=== PATIENT | female | born 1980 | race Caucasian/White ===

== ENCOUNTER → 2019-02-24 | Outpatient (CLI) | payer BC ==
[~2019-02-24] MED LIST: LIDOCAINE HCL 1% LOCAL INJ 20 ML VIAL ONE; MIDAZOLAM HCL 2 MG/2 ML VIAL ONE
--- NOTE | 2019-02-24 13:43 | Diagnostic Imaging Report ---
PROCEDURE: Ultrasound-guided thyroid biopsy Procedural Personnel Attending physician(s): Dontrell Liz MD Fellow physician(s): None Resident physician(s): None Advanced practice provider(s): None Pre-procedure diagnosis: Left thyroid nodule Post-procedure diagnosis: Same Indication: Histopathologic diagnosis Previous biopsy of same target (QCDR): No Additional clinical history: None Complications: No immediate complications. IMPRESSION: Ultrasound-guided biopsy of left thyroid nodule . Plan: Specimen(s) sent for evaluation. PROCEDURE SUMMARY: - Percutaneous US-guided left thyroid nodule biopsy - Additional procedure(s): None PROCEDURE DETAILS: Pre-procedure Reference imaging for biopsy target: Outside CT Consent: Informed consent for the procedure including risks, benefits and alternatives was obtained and time-out was performed prior to the procedure. Preparation: The site was prepared and draped using maximal sterile barrier technique including cutaneous antisepsis. Anesthesia/sedation Level of anesthesia/sedation: No sedation Anesthesia/sedation administered by: Independent trained observer under attending supervision with continuous monitoring of the patient?s level of consciousness and physiologic status Imaging prior to biopsy The patient was positioned supine. Initial ultrasound was performed. Biopsy target: - Maximal diameter (cm): 2.4 - Location: Left thyroid lobe Other findings: None Biopsy Local anesthesia was administered. Under US guidance, the biopsy needle was advanced to the target and biopsy was performed. Fine needle aspiration device: 22g Chiba Fine needle size: 22g x 9cm Number of FNA specimens: 4 On-site biopsy touch preparation: Yes Additional sampling recommendations: None Preliminary assessment of sample adequacy: Adequate Needle removal The biopsy needle was removed and a sterile dressing was applied. Tract embolization: None Imaging following biopsy Immediate post-biopsy ultrasound was performed. Post-biopsy imaging findings: No hematoma Additional Details Additional description of procedure: None Equipment details: None Specimens removed: Biopsy samples as detailed above Estimated blood loss (mL): Less than 10 Standardized report: [id number] Attestation Signer name: Dontrell Liz MD I attest that I was present for the entire procedure. I reviewed the stored images and agree with the report as written. Signed by: Dontrell Liz MD on 02/24/2019 1:40 PM
== END ==
LOC: US 11:14
PROVIDERS: ATTEND Otolaryngology
DX: E04.1 Nontoxic single thyroid nodule (principal)
CPT/HCPCS: 10005; 88172; 88173; J2001; 88305; J2250

== ENCOUNTER 2021-06-13 10:09 | Observation (INO) | payer BC, OTHER ==
[~2021-06-13] VITALS: Ht 160 cm; Wt 77.1 kg
[~2021-06-13 10:09] MED LIST changes: +ADDERALL 10 MG10 MG PO; -LIDOCAINE HCL 1% LOCAL INJ 20 ML VIAL ONE; +LUNESTA1 MG PO; -MIDAZOLAM HCL 2 MG/2 ML VIAL ONE
[2021-06-13] MEDS ORDERED: LIDOCAINE 1% W/EPINEPHRINE 20 ML VIAL ONE (11:53)
[2021-06-13] MEDS ORDERED: FENTANYL CITRATE/PF 100MCG/2 ML INJ ONE ×2 (11:59→15:03)
[2021-06-13] MEDS ORDERED: MIDAZOLAM HCL 2 MG/2 ML VIAL ONE (11:59)
[2021-06-13] MEDS ORDERED: ONDANSETRON HCL INJ 2MG/ML 2ML 2 MG/ML VIAL ONE ×2 (15:12→19:29)
[2021-06-13] MEDS ORDERED: Morphine 2mg Syringe 2 MG/ML SYR ONE (15:37)
[2021-06-13 16:18] VITALS: BP 122/88
[2021-06-13 16:35] VITALS: BP 122/88
[2021-06-13] MEDS ORDERED: ONDANSETRON HCL INJ 2MG/ML 2ML 2 MG/ML VIAL IV PRN (17:00)
[2021-06-13] MEDS ORDERED: HYDROCODONE/APAP 5MG-325MG TAB PO PRN ×2 (17:00)
[2021-06-13] MEDS: Cefazolin 1 GM in SODIUM CHLORIDE 0.9% 50ML 50 ML IV SCH (17:57)
[2021-06-13] MEDS: D5.45%NS/KCL 20MEQ 1,000 ML IV SCH (17:58)
[2021-06-13] MEDS ORDERED: LIDOCAINE HCL 2% LOCAL INJ 5 ML SDV VIAL INJ ONE (19:29)
[2021-06-13] MEDS ORDERED: POVIDONE IODINE 0.05% 0.05 % ML PO ONE (19:29)
[2021-06-13] MEDS ORDERED: SEVOFLURANE INHAL SOLN 250 ML PEN BTL ONE (19:29)
[2021-06-13] MEDS ORDERED: SUCCINYLCHOLINE CHLORIDE 20 MG/ML 10ML VIAL ONE (19:29)
[2021-06-13] MEDS ORDERED: FAMOTIDINE 20 MG/2 ML VIAL IV ONE (19:29)
[2021-06-13] MEDS ORDERED: PROPOFOL IV EMULSION 10 MG/ML 20 ML VIAL ONE (19:29)
[2021-06-13] MEDS ORDERED: DEXAMETHASONE SOD PHOS INJ 4 MG/ML SDV ONE (19:29)
[2021-06-13 20:00] VITALS: BP 119/77
[2021-06-13 20:50] VITALS: BP 119/77
[2021-06-13] MEDS ORDERED: IBUPROFEN 400 MG TAB PO PRN (21:15)
[2021-06-14] VITALS: BP 118/80
[2021-06-14] MEDS: Cefazolin 1 GM in SODIUM CHLORIDE 0.9% 50ML 50 ML IV SCH (01:30)
[2021-06-14] MEDS: D5.45%NS/KCL 20MEQ 1,000 ML IV SCH (02:51)
[2021-06-14 08:18] VITALS: BP 118/78
[2021-06-14] MEDS ORDERED: ACETAMINOPHEN 325 MG TAB PO ONE (08:30)
[2021-06-14 09:46] VITALS: BP 118/78
== END 2021-06-14 10:36 | disposition home or self-care (01) ==
LOC: OR 10:09 → PACU V 15:31 → MED/SURG 15:50
PROVIDERS: ADMIT Otolaryngology; ATTEND Otolaryngology
DX: D34 Benign neoplasm of thyroid gland (principal); G47.00 Insomnia, unspecified; F98.8 Other specified behavioral and emotional disorders with onset usually occurring in childhood and adolescence; Z87.891 Personal history of nicotine dependence; Z01.812 Encounter for preprocedural laboratory examination; Z20.822 Contact with and (suspected) exposure to COVID-19; K21.9 Gastro-esophageal reflux disease without esophagitis; Z68.30 Body mass index [BMI] 30.0-30.9, adult
CPT/HCPCS: 60220; 81025; 88307; 88331; G0378 ×2; J0330; J0690 ×2; J1100; J2001; J2270; J2405; J2704; J3010; U0002; 88305; J2250

== ENCOUNTER → 2022-02-08 | Outpatient (CLI) | payer BC | LOC: MAMMO 12:50 | PROVIDERS: ATTEND Obstetrics & Gynecology | DX: Z12.31 Encounter for screening mammogram for malignant neoplasm of breast (principal) | CPT/HCPCS: 77067 ==

== ENCOUNTER → 2022-03-21 | Outpatient (CLI) | payer SELFPAY | LOC: MAMMO 13:49 | PROVIDERS: ATTEND Obstetrics & Gynecology | DX: N63.20 Unspecified lump in the left breast, unspecified quadrant (principal) ==

== ENCOUNTER 2022-09-06 18:10 | Emergency (ER) | payer OTHER ==
[~2022-09-06] VITALS: Ht 160 cm; Wt 77.1 kg
[2022-09-06] MEDS ORDERED: ONDANSETRON HCL INJ 2MG/ML 2ML 2 MG/ML VIAL IV STA (18:18)
[2022-09-06] MEDS ORDERED: Morphine 4mg INJECTION 4 MG/ML INJ IV ONE (18:30)
[2022-09-06 18:34] LABS: BASOPHILS # (AUTO) 0.1 (0.0-0.1); BASOPHILS % 0.6 % (0.0-1.0); EOSINOPHILS # (AUTO) 0.8 (0.0-0.4); EOSINOPHILS % 7.9 % (0.0-6.0); HEMATOCRIT 40.7 % (34.2-44.1); HEMOGLOBIN 13.8 g/dL (12.0-16.0); LYMPHOCYTES # (AUTO) 2.4 (1.0-3.2); LYMPHOCYTES % 24.6 % (18.0-39.1); MEAN CORPUSCULAR HEMOGLOBIN 29.7 pg (28-32); MEAN CORPUSCULAR HGB CONC 33.9 g/dL (31-35); MEAN CORPUSCULAR VOLUME 87.7 fL (81-99); MONOCYTES # (AUTO) 0.5 (0.2-0.8); MONOCYTES % 4.7 % (4.4-11.3); NEUTROPHILS % 61.8 % (38.7-80.0); PLATELET COUNT 291 x10e3/uL (140-360); RED BLOOD COUNT 4.64 x10e6/uL (3.6-5.1); RED CELL DISTRIBUTION WIDTH 12.6 % (11.7-14.4)
[2022-09-06 18:53] LABS: ALBUMIN 3.7 g/dL (3.5-5.0); ALBUMIN/GLOBULIN RATIO 0.9 (0.8-2.0); ANION GAP 17.4 mmol/L (8-16); CALCIUM 9.4 mg/dL (8.4-10.2); CREATININE, SERUM 0.65 mg/dL (0.57-1.11); POTASSIUM 3.4 mmol/L (3.5-5.1)
[2022-09-06 18:59] LABS: CREATINE KINASE MB 0.4 ng/mL (0-5.0)
[2022-09-06] MEDS ORDERED: IOPAMIDOL 370 MG/ML 100 ML INFUS..BTL INJ ONE (19:56)
[2022-09-06] MEDS ORDERED: KETOROLAC TROMETHAMINE 30 MG/ML VIAL IV STA (21:09)
[2022-09-06] MEDS ORDERED: KETOROLAC TROMETHAMINE 30 MG/ML VIAL ONE (21:27)
[2022-09-06] MEDS ORDERED: KETOROLAC TROME10 MG PO (21:44)
[2022-09-06 22:14] VITALS: BP 133/89
== END 2022-09-06 22:15 | disposition home or self-care (01) ==
LOC: ER 18:19
DX: R06.02 Shortness of breath (principal); J90 Pleural effusion, not elsewhere classified; R10.816 Epigastric abdominal tenderness; R11.2 Nausea with vomiting, unspecified; K21.9 Gastro-esophageal reflux disease without esophagitis; F98.8 Other specified behavioral and emotional disorders with onset usually occurring in childhood and adolescence; R94.31 Abnormal electrocardiogram [ECG] [EKG]
CPT/HCPCS: 36415; 71045; 71260; 80053; 82550; 82553; 82948; 83690; 84484; 84702; 85025; 85379; 93005; 99284; C9113; J1885; J2270; J2405; Q9967

== ENCOUNTER 2022-09-08 00:13 | Observation (INO) | payer OTHER ==
[~2022-09-08] VITALS: Ht 160 cm; Wt 77.1 kg
[2022-09-08] VITALS (9 sets, daily range): BP systolic 134–155; BP diastolic 84–97
[~2022-09-08 00:13] MED LIST changes: +KETOROLAC TROME10 MG PO
[2022-09-08 00:37] LABS: BASOPHILS # (AUTO) 0.1 (0.0-0.1); BASOPHILS % 0.6 % (0.0-1.0); EOSINOPHILS # (AUTO) 0.7 (0.0-0.4); EOSINOPHILS % 6.9 % (0.0-6.0); HEMATOCRIT 39.6 % (34.2-44.1); HEMOGLOBIN 13.5 g/dL (12.0-16.0); LYMPHOCYTES # (AUTO) 1.9 (1.0-3.2); LYMPHOCYTES % 19.4 % (18.0-39.1); MEAN CORPUSCULAR HEMOGLOBIN 29.9 pg (28-32); MEAN CORPUSCULAR HGB CONC 34.1 g/dL (31-35); MEAN CORPUSCULAR VOLUME 87.6 fL (81-99); MONOCYTES # (AUTO) 0.4 (0.2-0.8); MONOCYTES % 3.8 % (4.4-11.3); NEUTROPHILS # (AUTO) 6.6 (2.1-6.9); NEUTROPHILS % 68.9 % (38.7-80.0); PLATELET COUNT 305 x10e3/uL (140-360); RED BLOOD COUNT 4.52 x10e6/uL (3.6-5.1); RED CELL DISTRIBUTION WIDTH 12.7 % (11.7-14.4)
[2022-09-08 01:01] LABS: ALANINE AMINOTRANSFERASE 143 IU/L (0-55); ALBUMIN 3.7 g/dL (3.5-5.0); ALBUMIN/GLOBULIN RATIO 1.1 (0.8-2.0); ALKALINE PHOSPHATASE 112 IU/L (40-150); ANION GAP 17.5 mmol/L (8-16); BLOOD UREA NITROGEN 7 mg/dL (7-26); BUN/CREATININE RATIO 11 (6-25); CARBON DIOXIDE 20 mmol/L (22-29); CHLORIDE 107 mmol/L (98-107); CREATINE KINASE 68 IU/L (29-168); CREATININE, SERUM 0.66 mg/dL (0.57-1.11); GLUCOSE 97 mg/dL (74-118); POTASSIUM 3.5 mmol/L (3.5-5.1); SODIUM 141 mmol/L (136-145)
[2022-09-08 01:07] LABS: CREATINE KINASE MB < 1.00 ng/mL (0-4.3)
[2022-09-08] MEDS ORDERED: KETOROLAC TROMETHAMINE 30 MG/ML VIAL IM PRN (01:45)
[2022-09-08] MEDS: SODIUM CHLORIDE 0.9% 1000ML 1,000 ML IV SCH ×3 (03:01→16:32)
[2022-09-08] MEDS: Morphine 4mg INJECTION 4 MG/ML INJ IV PRN ×2 (03:02→10:00)
[2022-09-08] MEDS: ONDANSETRON HCL INJ 2MG/ML 2ML 2 MG/ML VIAL IV PRN ×2 (03:05→09:59)
[2022-09-08 09:58] LABS: CREATINE KINASE 46 IU/L (29-168)
[2022-09-08 16:33] LABS: CREATINE KINASE MB 0.3 ng/mL (0-5.0)
[2022-09-09] VITALS: BP 108/70
[2022-09-09] MEDS: SODIUM CHLORIDE 0.9% 1000ML 1,000 ML IV SCH ×3 (04:07→17:45)
[2022-09-09 04:09] VITALS: BP 116/79
[2022-09-09 06:02] LABS: BASOPHILS # (AUTO) 0.1 (0.0-0.1); BASOPHILS % 0.7 % (0.0-1.0); EOSINOPHILS # (AUTO) 0.7 (0.0-0.4); EOSINOPHILS % 8.7 % (0.0-6.0); HEMATOCRIT 36.5 % (34.2-44.1); LYMPHOCYTES # (AUTO) 1.6 (1.0-3.2); LYMPHOCYTES % 20.1 % (18.0-39.1); MEAN CORPUSCULAR HEMOGLOBIN 29.7 pg (28-32); MEAN CORPUSCULAR HGB CONC 32.9 g/dL (31-35); MEAN CORPUSCULAR VOLUME 90.3 fL (81-99); MONOCYTES # (AUTO) 0.4 (0.2-0.8); MONOCYTES % 4.8 % (4.4-11.3); NEUTROPHILS # (AUTO) 5.3 (2.1-6.9); NEUTROPHILS % 65.2 % (38.7-80.0); PLATELET COUNT 261 x10e3/uL (140-360); RED BLOOD COUNT 4.04 x10e6/uL (3.6-5.1); RED CELL DISTRIBUTION WIDTH 12.9 % (11.7-14.4)
[2022-09-09 06:25] LABS: ALBUMIN 2.9 g/dL (3.5-5.0); ANION GAP 11.4 mmol/L (8-16); CALCIUM 8.3 mg/dL (8.4-10.2); CREATININE, SERUM 0.58 mg/dL (0.57-1.11); POTASSIUM 3.4 mmol/L (3.5-5.1)
[2022-09-09 06:39] LABS: CREATINE KINASE 32 IU/L (29-168)
[2022-09-09 08:57] VITALS: BP 138/94
[2022-09-09 09:00] VITALS: BP 138/94
[2022-09-09 12:05] VITALS: BP 155/95
[2022-09-09] MEDS ORDERED: LIDOCAINE HCL 2% LOCAL INJ 5 ML SDV VIAL INJ ONE (12:52)
[2022-09-09] MEDS ORDERED: GLYCOPYRROLATE INJ 0.2 MG/ML VIAL ONE (12:52)
[2022-09-09] MEDS ORDERED: PROPOFOL IV EMULSION 10 MG/ML 20 ML VIAL ONE (12:52)
[2022-09-09] MEDS ORDERED: POVIDONE IODINE 0.05% 0.05 % ML PO ONE (12:52)
[2022-09-09] MEDS ORDERED: MIDAZOLAM HCL 2 MG/2 ML VIAL ONE (13:15)
[2022-09-09] MEDS ORDERED: METOCLOPRAMIDE HCL 10 MG/2ML VIAL ONE (13:29)
[2022-09-09 16:46] VITALS: BP 138/93
== END 2022-09-09 20:02 | disposition home or self-care (01) ==
LOC: ER 00:20 → ERHOLD 01:45 → MED/SURG2 02:46
PROVIDERS: ADMIT Family Medicine; ATTEND Family Medicine
DX: K29.71 Gastritis, unspecified, with bleeding (principal); R07.89 Other chest pain; K20.90 Esophagitis, unspecified without bleeding; K44.9 Diaphragmatic hernia without obstruction or gangrene; F98.8 Other specified behavioral and emotional disorders with onset usually occurring in childhood and adolescence; Z79.1 Long term (current) use of non-steroidal anti-inflammatories (NSAID); Z20.822 Contact with and (suspected) exposure to COVID-19
CPT/HCPCS: 36415 ×2; 43239; 71045; 74181; 80053 ×2; 81025; 82550 ×2; 82553 ×2; 83690 ×2; 84484 ×2; 85025 ×2; 88305; 88342; 93005; 94799; 99284; C9113 ×2; G0378 ×2; J2001; J2250; J2270; J2405; J2704; J2765; J7030 ×2; U0002; 88304; 88312

== ENCOUNTER 2022-09-24 12:40 | Emergency (ER) | payer OTHER ==
[~2022-09-24] VITALS: Ht 160 cm; Wt 70.3 kg
[2022-09-24] MEDS ORDERED: DONNATAL/LIDOCAINE/MAALOX 30 ML SUSP PO ONE (13:30)
[2022-09-24 13:57] LABS: BASOPHILS # (AUTO) 0.1 (0.0-0.1); BASOPHILS % 0.8 % (0.0-1.0); EOSINOPHILS # (AUTO) 0.1 (0.0-0.4); EOSINOPHILS % 1.1 % (0.0-6.0); HEMATOCRIT 42.6 % (34.2-44.1); HEMOGLOBIN 13.9 g/dL (12.0-16.0); LYMPHOCYTES # (AUTO) 1.9 (1.0-3.2); LYMPHOCYTES % 29.1 % (18.0-39.1); MEAN CORPUSCULAR HEMOGLOBIN 29.6 pg (28-32); MEAN CORPUSCULAR HGB CONC 32.6 g/dL (31-35); MEAN CORPUSCULAR VOLUME 90.8 fL (81-99); MONOCYTES # (AUTO) 0.4 (0.2-0.8); MONOCYTES % 6.5 % (4.4-11.3); NEUTROPHILS # (AUTO) 4.2 (2.1-6.9); NEUTROPHILS % 62.3 % (38.7-80.0); PLATELET COUNT 301 x10e3/uL (140-360); RED BLOOD COUNT 4.69 x10e6/uL (3.6-5.1); RED CELL DISTRIBUTION WIDTH 13.3 % (11.7-14.4)
[2022-09-24 14:22] LABS: ALANINE AMINOTRANSFERASE 30 IU/L (0-55); ALBUMIN 4.4 g/dL (3.5-5.0); ALBUMIN/GLOBULIN RATIO 1.3 (0.8-2.0); ALKALINE PHOSPHATASE 65 IU/L (40-150); ANION GAP 14.5 mmol/L (8-16); BLOOD UREA NITROGEN 7 mg/dL (7-26); BUN/CREATININE RATIO 9 (6-25); CALCIUM 9.5 mg/dL (8.4-10.2); CARBON DIOXIDE 23 mmol/L (22-29); CHLORIDE 104 mmol/L (98-107); CREATININE, SERUM 0.74 mg/dL (0.57-1.11); GLUCOSE 96 mg/dL (74-118); LIPASE 38 U/L (8-78); POTASSIUM 3.5 mmol/L (3.5-5.1); SODIUM 138 mmol/L (136-145)
[2022-09-24] MEDS ORDERED: OMEPRAZOLE40 MG PO (15:24)
[2022-09-24 17:12] VITALS: BP 136/93
== END 2022-09-24 16:45 | disposition home or self-care (01) ==
LOC: ER 13:19
DX: R10.12 Left upper quadrant pain (principal); K21.9 Gastro-esophageal reflux disease without esophagitis; R11.0 Nausea; F98.8 Other specified behavioral and emotional disorders with onset usually occurring in childhood and adolescence
CPT/HCPCS: 36415; 80053; 83690; 84702; 85025; 99283

== ENCOUNTER → 2022-10-16 | Outpatient (CLI) | payer OTHER ==
[~2022-10-16] MED LIST changes: +OMEPRAZOLE40 MG PO
== END ==
LOC: US 07:46
PROVIDERS: ATTEND Nurse Practitioner
DX: R16.0 Hepatomegaly, not elsewhere classified (principal)
CPT/HCPCS: 76700

== ENCOUNTER → 2023-05-01 | Outpatient (REF) | payer OTHER ==
[~2023-05-01] MED LIST changes: +METHOCARBAMOL500 MG PO; +ONDANSETRON ODT4 MG PO
== END ==
LOC: MAMMO 16:55
PROVIDERS: ATTEND Specialist
DX: Z12.31 Encounter for screening mammogram for malignant neoplasm of breast (principal)
CPT/HCPCS: 77067

== ENCOUNTER → 2024-04-27 | Outpatient (REF) | payer OTHER | LOC: MAMMO 16:05 | PROVIDERS: ATTEND Specialist | DX: Z12.31 Encounter for screening mammogram for malignant neoplasm of breast (principal) | CPT/HCPCS: 77067 ==

== ENCOUNTER → 2025-01-11 | Outpatient (REF) | payer OTHER ==
[~2025-01-11] MED LIST changes: +AUGMENTIN 500-1 EACH PO; +LINZESS290 MCG PO; +OZEMPIC0.25 MG/02 SC; +PANTOPRAZOLE SO40 MG PO; +PROBIOTIC & AC1 EACH PO; +STOOL SOFTENER50 MG PO
== END ==
LOC: RAD 08:00 → EDSTATUS 01-28 14:30
PROVIDERS: ATTEND Internal Medicine Gastroenterology
DX: Z01.818 Encounter for other preprocedural examination (principal); K59.09 Other constipation
CPT/HCPCS: 93005

== ENCOUNTER → 2025-01-11 | Outpatient (REF) | payer OTHER | LOC: RAD 14:19 | PROVIDERS: ATTEND Internal Medicine Gastroenterology | DX: K59.00 Constipation, unspecified (principal) | CPT/HCPCS: 74018 ==

== ENCOUNTER → 2025-01-20 | Outpatient (REF) | payer OTHER | LOC: RAD 13:55 | PROVIDERS: ATTEND Internal Medicine Gastroenterology | DX: K59.00 Constipation, unspecified (principal) | CPT/HCPCS: 74018; 81025 ==

== ENCOUNTER → 2025-02-22 | Outpatient (REF) | payer OTHER | LOC: EDSTATUS 09:06 → RAD 09:06 | PROVIDERS: ATTEND Internal Medicine Gastroenterology | DX: K59.09 Other constipation (principal) | CPT/HCPCS: 74018; 81025 ==

== ENCOUNTER → 2025-03-04 | Outpatient (REF) | payer OTHER | LOC: US 07:44 | PROVIDERS: ATTEND Internal Medicine Gastroenterology | DX: R10.9 Unspecified abdominal pain (principal); K59.09 Other constipation | CPT/HCPCS: 76700; 76856 ==